=== PATIENT | female | born 1990 | race Caucasian/White ===

== ENCOUNTER 2021-01-26 09:38 | Emergency (ER) | payer MEDICAID ==
[~2021-01-26] VITALS: Ht 157.5 cm; Wt 72.1 kg
[2021-01-26 09:42] VITALS: BP 146/78
[2021-01-26] MEDS ORDERED: HYDROcodone/APAP 5/325 MG 1 TAB TAB PO ONE (10:00)
[2021-01-26] MEDS ORDERED: AMOX-1000 PO (11:01)
[2021-01-26] MEDS ORDERED: DEC4 PO (11:01)
[2021-01-26 11:18] VITALS: BP 121/68
== END 2021-01-26 11:18 | disposition home or self-care (01) ==
LOC: MED 09:38
DX: J02.9 Acute pharyngitis, unspecified (principal)
CPT/HCPCS: 70360; 99283